=== PATIENT | female | born 1960 | race Caucasian/White ===

== ENCOUNTER 2018-07-01 16:34 | Emergency (ER) | payer BC ==
[~2018-07-01] VITALS: Ht 152.4 cm; Wt 47.6 kg
--- OUTSIDE RECORDS SUMMARY | 2018-07-01 16:36 | XMS REPORT | Summary of Care ---
Author Author Jo Ann Oscar R.N. Unknown Address Unknown Phone Unavailable Care Team Providers Care Substitute Nurse Name Role Phone Jo Ann Oscar R.N. 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 Hand pain (729.5, M79.643) Status: Active History of breast cancer (V10.3, Z85.3) Status: Active Screen for colon cancer (V76.51, Z12.11) Status: Active Breast cancer screening (V76.10, Z12.31) Status: Active Painful thyroid (246.8, E07.89) Status: Active Medications Name Dates Details None - No Current Medications Active Allergies and Adverse Reactions Name Dates Details No Known Drug Allergies (Allergy) Status: Active Past Medical History Name Dates Details History of Breast Cancer (V10.3) Status: Resolved History of lymphadenopathy (V13.89, Z87.898) Status: Resolved History of psoriasis (V13.3, Z87.2) Status: Resolved History of vertigo (V12.49, Z87.898) Status: Resolved Personal history of urinary tract infection (V13.02, Z87.440) Status: Resolved Procedures Procedure Dates Details [L] Occult Blood, Fecal, IA Date: 01-May-2018 [[facility]] TSH, 3RD GENERATION W/REFLEX TO FT4 Date: 01-May-2018 [place] Digital Mammo DX Galo [id number] Date: 01-May-2018 [place] Thyroid [id number] Date: 01-May-2018 History of Breast Surgery Lumpectomy Completed Immunization Name Dates Details Immunizations not documented Family History Name Dates Details Family history of Hypertension (V17.49) Comments: Family History Status: Active Family history of Diabetes Mellitus (V18.0) Comments: Family History Status: Active Family history of Coronary Artery Disease (V17.49) Comments: Family History Status: Active Name Dates Details Family history of Liver Cancer Status: Active Social History Name Dates Details - Status: Name Dates Details Never smoker Vital Signs Date Test Result Details :27 Physical Findings 11 Status: Comments: PHQ-9 Adult Depression Screening :23 BP Systolic 132 mm[Hg] Status: Comments: Location: LUE; Position: Sitting BP Diastolic 83 mm[Hg] Status: Comments: Location: LUE; Position: Sitting Height 62 in Status: Weight 108 lb Status: Body Mass Index Calculated 19.75 kg/m2 Status: Body Surface Area Calculated 1.47 m2 Status: Temperature 97.9 f Status: Comments: Method: Temporal Heart Rate 67 /min Status: Respiration Rate 14 /min Status: Physical Findings 0 Status: Comments: Pain Scale Physical Findings 0 Status: Comments: Alcohol Screen - How many times in the past yr have you had 5 (for M) or 4 (for F) or 4 (for all > 65yrs) or more drinks in a day? Results Date Description Value Details [id number] Tobacco Use Screening Completed DONE [id number] [[facility]] TSH, 3RD GENERATION W/REFLEX TO FT4 Comments: REPORT COMMENT:FASTING:YES TSH, 3RD GENERATION W/REFLEX TO FT4 2.06 {MIU/L} (Normal) Range: 0.40-4.50 Plan of Care Name Dates Details Planned Observations Planned Goals not documented Instructions Name Dates Details Instructions not documented Encounters Appointment; SULMA FREITAS M.D. Encounter Diagnosis: Problem not documented On: 01-May-2018 11:15
== END 2018-07-01 17:00 | disposition home or self-care (01) ==
LOC: FSED 16:34
DX: H66.92 Otitis media, unspecified, left ear (principal)
CPT/HCPCS: 99283